=== PATIENT | female | born 1990 | race Caucasian/White ===

== ENCOUNTER → 2017-09-17 | Outpatient (REF) | payer OTHER | LOC: M LAB REF 15:35 | DX: Z01.419 Encounter for gynecological examination (general) (routine) without abnormal findings (principal) ==

== ENCOUNTER → 2018-12-08 | Outpatient (REF) | payer OTHER ==
[2018-12-13 12:05] LABS: HPV HYBRID CAPTURE II Positive (Negative)
== END ==
LOC: M LAB REF 14:16
PROVIDERS: ATTEND Physician Assistant Medical
DX: Z12.4 Encounter for screening for malignant neoplasm of cervix (principal); R87.612 Low grade squamous intraepithelial lesion on cytologic smear of cervix (LGSIL)

== ENCOUNTER → 2018-12-08 | Outpatient (REF) | payer OTHER ==
[2018-12-08 15:29] LABS: CHLAMYDIA DNA AMPLIFICATION NEGATIVE (NEGATIVE); GC DNA AMPLIFICATION NEGATIVE (NEGATIVE)
== END ==
LOC: M LAB REF 13:29
PROVIDERS: ATTEND Physician Assistant Medical
DX: R87.618 Other abnormal cytological findings on specimens from cervix uteri (principal)

== ENCOUNTER → 2019-01-13 | Outpatient (CLI) | payer OTHER ==
--- NOTE | 2019-01-13 14:33 | REP ---
FIRST TRIMESTER ULTRASOUND: Real-time sonographic evaluation of the gravid uterus performed utilizing transabdominal and endovaginal technique. There is a single living intrauterine gestation. Estimated gestational age 5 weeks 6 days based on a crown-rump length of 2 mm. EDC 09/09/2019. heart rate is 114 beats per minute. There is a small subchorionic hemorrhage measuring 26 x 14 x 22 mm. No maternal adnexal region abnormalities are seen. Electronically Signed by Christian Lombardo MD 01/16/2019 01:39 P
== END ==
LOC: M RAD 11:59
PROVIDERS: ATTEND Nurse Practitioner Family
DX: Z32.01 Encounter for pregnancy test, result positive (principal); O46.91 Antepartum hemorrhage, unspecified, first trimester; Z3A.01 Less than 8 weeks gestation of pregnancy

== ENCOUNTER 2019-10-25 14:24 | Emergency (ER) | payer OTHER ==
[~2019-10-25] VITALS: Ht 157.5 cm; Wt 73.7 kg
[2019-10-25] MEDS ORDERED: NEXP1IMP SC (14:33)
[2019-10-25 16:12] LABS: BASO % 0.5 % (0.0-1.0); EOS % 0.7 % (0.0-3.0); HEMOGLOBIN 14.5 g/dl (12.0-15.5); LYMPH # 0.7 10^3/uL (1.5-5.0); LYMPH % 12.5 % (24.0-44.0); MEAN CORPUSCULAR HEMOGLOBIN 30.1 pg (27.0-33.0); MEAN CORPUSCULAR HGB CONC 33.7 g/dl (32.0-36.5); MEAN CORPUSCULAR VOLUME 89.4 fl (80.0-96.0); MONO # 0.8 10^3/uL (0.0-0.8); MONO % 13.6 % (0.0-5.0); NEUTROPHILS % 72.7 % (36.0-66.0); PLATELET COUNT, AUTOMATED 265 10^3/uL (150-450); RED BLOOD COUNT 4.81 10^6/uL (4.00-5.40); WHITE BLOOD COUNT 5.5 10^3/uL (4.0-10.0)
[2019-10-25 16:36] LABS: ALBUMIN 4.5 GM/DL (3.2-5.2); BILIRUBIN,DIRECT 0.1 MG/DL (0.0-0.2); BILIRUBIN,TOTAL 0.4 MG/DL (0.2-1.0); TOTAL PROTEIN 7.8 GM/DL (6.4-8.2)
[2019-10-25 16:41] LABS: BLOOD UREA NITROGEN 4 MG/DL (7-18); CALCIUM LEVEL 8.8 MG/DL (8.5-10.1); CARBON DIOXIDE LEVEL 27 MEQ/L (21-32); CHLORIDE LEVEL 107 MEQ/L (98-107); CREATININE FOR GFR 0.79 MG/DL (0.55-1.30); GLOMERULAR FILTRATION RATE > 60.0 (>60); GLUCOSE, FASTING 115 MG/DL (70-100); HCG, SERUM QUANTITATIVE 19 MIU/ML; POTASSIUM SERUM 3.4 MEQ/L (3.5-5.1); SODIUM LEVEL 140 MEQ/L (136-145)
[2019-10-25 18:02] LABS: INFLUENZA A AMPLIFICATION POSITIVE (NEGATIVE); INFLUENZA B AMPLIFICATION NEGATIVE (NEGATIVE)
--- NOTE | 2019-10-25 20:10 | REPVR ---
PROCEDURE INFORMATION: Exam: US First Trimester, Transabdominal Exam date and time: 10/25/2019 6:11 PM Age: 29 years old Clinical indication: complicated by abdominal or pelvic pain; Right lower quadrant; First trimester; Gestational age or lmp: ? ; ; Additional info: Rlq pain/hcg only 19 TECHNIQUE: Imaging protocol: Real-time transabdominal obstetrical ultrasound of the maternal pelvis and a first trimester , less than 14 weeks 0 days, with image documentation. COMPARISON: No relevant prior studies available. FINDINGS: Uterus measures 9.7 x 4.1 x 6.8 cm and is retroverted. No focal mass No evidence of gestational sac within the endometrial cavity. Endometrial stripe is regular in appearance and measures 7 mm. Right ovary appears normal, measuring 3.3 x 2.2 x 2.6 cm. Doppler demonstrates normal vascular flow. Resistive index 0.65. Left ovary appears normal, measuring 3.7 x 2.0 x 2.5 cm. Left ovarian follicle, 2 cm Doppler demonstrates normal vascular flow. Resistive index 0.73. No abnormal volume of free pelvic fluid. IMPRESSION: No evidence of intrauterine . No concerning evidence for ectopic , although ectopic cannot be entirely excluded. Differential diagnosis includes spontaneous , very early intrauterine , or ectopic . Electronically signed by: Aden Valenzuela On 10/25/2019 20:10:48 PM
[2019-10-25] MEDS ORDERED: CIPROFLOXACIN 500 MG TAB PO ONE (20:30)
[2019-10-25 20:41] VITALS: BP 116/71
== END 2019-10-25 20:43 | disposition home or self-care (01) ==
LOC: M ED 14:24
DX: J09.X2 Influenza due to identified novel influenza A virus with other respiratory manifestations (principal); Z32.01 Encounter for pregnancy test, result positive; N39.0 Urinary tract infection, site not specified; Z79.3 Long term (current) use of hormonal contraceptives

== ENCOUNTER → 2019-10-27 | Outpatient (CLI) | payer OTHER ==
[~2019-10-27] MED LIST: NEXP1IMP SC
== END ==
LOC: M LAB 12:56
PROVIDERS: ATTEND Physician Assistant
DX: Z32.00 Encounter for pregnancy test, result unknown (principal)

== ENCOUNTER → 2021-11-11 | Outpatient (REF) | payer OTHER | LOC: M LAB REF 17:00 | PROVIDERS: ATTEND Nurse Practitioner Family | DX: Z01.419 Encounter for gynecological examination (general) (routine) without abnormal findings (principal) ==